=== PATIENT | male | born 1985 | race American Indian/Alaskan Native ===

== ENCOUNTER 2017-04-14 05:47 | Emergency (ER) | payer OTHER ==
[2017-04-14 07:26] LABS: Basophils % (Auto) 0.6 % (0.0-1.8); Eosinophils % (Auto) 0.6 % (0.0-4.3); Hematocrit 44.6 % (35.5-45.6); Mean Corpuscular HGB Conc 34 % (32-34); Mean Corpuscular Hemoglobin 28 pg (28-32); Mean Corpuscular Volume 85 fl (84-94); Platelet Count 275 K/mm3 (140-440); Red Blood Count 5.26 M/mm3 (3.65-5.03); Red Cell Distribution Width 13.3 % (13.2-15.2); White Blood Count 5.8 K/mm3 (4.5-11.0)
[2017-04-14 07:37] LABS: Partial Thromboplastin Time 37.1 Sec. (24.2-36.6)
[2017-04-14 07:47] LABS: Anion Gap 17 mmol/L; BUN/Creatinine Ratio 9; Blood Urea Nitrogen 9 mg/dL (9-20); Calcium 9.7 mg/dL (8.4-10.2); Carbon Dioxide 27 mmol/L (22-30); Glucose 108 mg/dL (75-100); Potassium 3.9 mmol/L (3.6-5.0); Sodium 138 mmol/L (137-145)
[2017-04-14] MEDS ORDERED: NORVASC PO ONE (15:55)
--- NOTE | 2017-04-14 16:37 | Emergency Department Report ---
HPI - General Chief Complaint: Chest Pain Time Seen by Provider: 04/14/17 15:18 - HPI HPI: This is a 32 year-old male presents to the emergency department from home with complaint of a 2 or 3 day history of some fatigue, intermittent left upper chest discomfort and some left hand paresthesias. Currently the patient says he is asymptomatic. He denies any shortness of breath, nausea, vomiting, diaphoresis or fever. He has not taken anything for symptoms prior presentation. He also presents with some hypertension and does have a history of diagnosed hypertension but does not have a primary care physician and is not on any current medications. No recent travel or sick contacts at home. ED Past Medical Hx - Past Medical History Previous Medical History?: Yes Hx Hypertension: Yes Additional medical history: Obesity - Surgical History Past Surgical History?: No - Social History Smoking Status: Never Smoker Substance Use Type: None - Medications Home Medications: Home Medications Medication Instructions Recorded Confirmed Last Taken Type Amlodipine Besylate [Norvasc] 5 mg PO QDAY #30 tablet 04/14/17 Unknown Rx ED Review of Systems ROS: Stated complaint: CHEST PAIN,NUMBNESS OF LEFT ARM Other details as noted in HPI Comment: All other systems reviewed and negative Constitutional: denies: chills, fever Eyes: denies: eye pain, eye discharge, vision change ENT: denies: ear pain, throat pain Respiratory: denies: cough, shortness of breath, wheezing Cardiovascular: chest pain. denies: palpitations Gastrointestinal: denies: abdominal pain, nausea, diarrhea Genitourinary: denies: urgency, dysuria Musculoskeletal: denies: back pain, joint swelling, arthralgia Skin: denies: rash, lesions Neurological: paresthesias. denies: headache Physical Exam - Physical Exam Vital Signs: Vital Signs 04/14/17 04/14/17 04/14/17 05:55 13:43 16:22 Temperature 97.7 F 98.2 F Pulse Rate 88 80 74 Respiratory 18 17 Rate Blood Pressure 150/104 Blood Pressure 164/101 169/99 [Right] O2 Sat by Pulse 100 100 Oximetry Physical Exam: GENERAL: The patient is well-developed well-nourished. HENT: Normocephalic. Atraumatic. Patient has moist mucous membranes. EYES: Extraocular motions are intact. Pupils equal reactive to light bilaterally. NECK: Supple. Trachea is midline. CHEST/LUNGS: Clear to auscultation. There is no respiratory distress noted. HEART/CARDIOVASCULAR: Regular. There is no tachycardia. There is no gallop rub or murmur. ABDOMEN: Abdomen is soft, nontender. Patient has normal bowel sounds. There is no abdominal distention. SKIN: Skin is warm and dry. NEURO: The patient is awake, alert, and oriented. The patient is cooperative. The patient has no focal neurologic deficits. The patient has normal speech. MUSCULOSKELETAL: There is no tenderness or deformity. There is no limitation range of motion. There is no evidence of acute injury. ED Course Vital Signs 04/14/17 04/14/17 04/14/17 05:55 13:43 16:22 Temperature 97.7 F 98.2 F Pulse Rate 88 80 74 Respiratory 18 17 Rate Blood Pressure 150/104 Blood Pressure 164/101 169/99 [Right] O2 Sat by Pulse 100 100 Oximetry ED Medical Decision Making - Lab Data Result diagrams: 04/14/17 07:16 04/14/17 07:16 - EKG Data -: EKG Interpreted by Me EKG shows normal: sinus rhythm, axis, intervals, QRS complexes, ST-T waves Rate: normal - EKG Data When compared to previous EKG there are: previous EKG unavailable Interpretation: normal EKG - Radiology Data Radiology results: image reviewed interpreted by me: Chest x-ray does not show any acute process. There are no pleural effusions, obvious pneumonia and there is no pneumothorax. - Medical Decision Making 32-year-old male presents to the emergency department with some intermittent left upper chest pain, what appears to be left hand paresthesias and some uncontrolled blood pressure. He has a history of hypertension but has never been on blood pressure medication before. Labs are unremarkable including negative troponins 3. EKG does not show any ST elevation ME, ischemia or dysrhythmia. Chest x-ray does not show any acute process. When I'm seeing the patient, he is completely asymptomatic. He was given a dose of Norvasc for his blood pressure and upon reevaluation it is at a much more reasonable level. He is not a smoker and does not claim to drink many caffeinated products we discussed some dietary changes including low-salt. He will be placed on Norvasc and he will keep a blood pressure log. He was given multiple referrals for primary care clinics. He will return to the ER with any worsening of symptoms or any acute distress. - Differential Diagnosis ME, costochondritis, pneumonia Critical Care Time: No Critical care attestation.: If time is entered above; I have spent that time in minutes in the direct care of this critically ill patient, excluding procedure time. ED Disposition Clinical Impression: Intermittent chest pain Hypertension Qualifiers: Hypertension type: essential hypertension Qualified Code(s): I10 - Essential ( primary) hypertension Disposition: TO HOME OR SELFCARE Is pt being admited?: No Condition: Stable Instructions: Chest Pain (ED), Hypertension (ED) Additional Instructions: Please follow up with a primary care physician in the next few days if possible. I am starting you on a blood pressure medication called Norvasc/amlodipine to be taken once daily, usually in the morning. Try and stay away from foods that are high in salt and caffeinated products to help with your blood pressure. Keep a blood pressure log. Return to the emergency Department with any worsening of your symptoms or any acute distress. Prescriptions: Amlodipine Besylate [Norvasc] 5 mg PO QDAY #30 tablet Referrals: PRIMARY CARE, [Primary Care Provider] - 3-5 Days [facility] [Outside] - 3-5 Days [facility] [Outside] - 3-5 Days [facility] [Outside] - 3-5 Days Time of Disposition: 17:11
[2017-04-14 17:10] VITALS: BP 152/76
--- NOTE | 2017-04-15 07:45 | XRay Report ---
AP CHEST: HISTORY: chest pain AP view of the chest demonstrates a normal mediastinal and cardiac contour with clear lungs and normal bony and soft tissue structures. IMPRESSION: Unremarkable AP chest.
== END 2017-04-14 17:28 | disposition home or self-care (01) ==
LOC: ED 05:47
DX: R07.89 Other chest pain (principal); I10 Essential (primary) hypertension
CPT/HCPCS: 36415; 71010; 80048; 83880; 84484; 85025; 85610; 85730; 93005; 93010; 99284